=== PATIENT | female | born 1990 | race Two or more races ===

== ENCOUNTER 2021-01-08 07:02 | Emergency (ER) | payer SELFPAY ==
[~2021-01-08] VITALS: Ht 157.5 cm; Wt 72.6 kg
[2021-01-08] MEDS ORDERED: FOLIC ACID 1 MG TAB PO ONE (08:00)
[2021-01-08] MEDS ORDERED: SODIUM CHLORIDE 0.9% 1,000 ML IV ONE ×2 (08:00→08:30)
[2021-01-08 08:05] LABS: Basophils # (auto) 0 10 ^3/uL (0-0.2); Basophils % (auto) 0.3 % (0.0-2.0); Eosinophils # (auto) 0 10 ^3/uL (0-0.8); Eosinophils % (auto) 0.1 % (0.0-7.0); Hematocrit 35.4 % (36.0-46.0); Hemoglobin 12.1 g/dL (12.2-16.2); Lymphocytes % (auto) 11.3 % (10.0-50.0); Mean Corpuscular Hemoglobin 27.7 pg (28.0-32.0); Mean Corpuscular Volume 81.3 fL (80.0-100.0); Monocytes # (auto) 0.3 10 ^3/uL (0-1.3); Monocytes % (auto) 3.5 % (0.0-12.0); Neutrophils # (auto) 7.5 10 ^3/uL (1.6-8.6); Neutrophils % (auto) 84.8 % (37.0-80.0); Platelet Count (auto) 226 10^3/uL (140-450); Red Blood Cells 4.36 10^6/uL (4.0-5.20); Red Cell Distribution Width 16.2 % (11.8-14.3); White Blood Cell 8.8 10^3/uL (4.4-10.8)
[2021-01-08 08:23] LABS: Albumin 3.5 g/dL (3.4-5.0); Calcium 8.7 mg/dL (8.5-10.1); Potassium 3.8 mmol/L (3.5-5.1)
[2021-01-08 08:26] LABS: BUN/Creatinine Ratio 19.7; Bilirubin, Total 0.3 mg/dL (0.2-1.0); Total Protein 7.8 g/dL (6.4-8.2)
[2021-01-08] MEDS ORDERED: PROMETHAZINE HCL 25 MG/ML 1ML IV ONE (08:30)
[2021-01-08 09:03] LABS: Urine Bacteria FEW /hpf (None Seen); Urine Blood Negative /uL (Negative); Urine Mucus FEW (None Seen); Urine Specific Gravity 1.031 (1.001-1.035); Urine WBC 2 /hpf (0 - 5)
[2021-01-08 09:23] VITALS: BP 103/49
== END 2021-01-08 09:45 | disposition home or self-care (01) ==
LOC: ER 07:02
DX: O26.891 Other specified pregnancy related conditions, first trimester (principal); E86.0 Dehydration; Z3A.11 11 weeks gestation of pregnancy
CPT/HCPCS: 36415; 80053; 81001; 84702; 85025; 96361; 96374; 99283; J2550; J7030; 96360